=== PATIENT | male | born 1980 | race Hispanic/Latino ===

== ENCOUNTER → 2019-07-23 | Outpatient (CLI) | payer OTHER ==
--- NOTE | 2019-07-28 16:13 | SLEEPCENT ---
DATE OF PROCEDURE: 07/23/2019 ORDERED BY: Shankar Kenny PA-C Nocturnal polysomnography was performed for evaluation of sleep physiology in this patient with a history of excessive somnolence, morning headaches and nonrestorative sleep. 7 hours and 37 minutes of data were reviewed. There were 390.5 minutes of sleep identified. Sleep latency was mildly prolonged at 23 minutes. Rapid eye movement (REM) latency was normal at 80 minutes. Sleep architecture was good. There were four REM cycles. Overall sleep efficiency was 86.1%. The patient's electrocardiogram showed sinus rhythm with an average heart rate of 52 beats per minute. Rate ranged 45-75. EEG showed some coarsening in background, possibly medication effect. No focal events were identified. There were only eight respiratory events identified of 10 seconds in duration or greater for an apnea-hypopnea index of 1.2. The events that were seen were mixed and hypopneic. Events were seen only in the supine posture and arousals from these events were few. There was some limb activity seen but no trains of 30 events or greater. Limb movement arousal index was 5.1, oxygen saturations remained 90% plus throughout the study. IMPRESSION: Normal nocturnal polysomnography with snoring.
== END ==
LOC: M SLEEP 19:05
PROVIDERS: ATTEND Physician Assistant
DX: R06.83 Snoring (principal); R40.0 Somnolence

== ENCOUNTER 2020-07-13 10:10 | Day surgery (SDC) | payer OTHER ==
[~2020-07-13] VITALS: Ht 170.2 cm; Wt 82.1 kg
[~2020-07-13 10:10] MED LIST: LEXA1TAB PO; LIDOCAINE 1% MDV 20ML VIAL SQ PRN; LR 1,000 ML IV ONE; MELA3TAB7 PO; ceFAZolin SOD 2 GM in IV 1 EA IV ONE
[2020-07-13] MEDS ORDERED: KETOROLAC 60MG 2ML VIAL As Ordered ONE (10:22)
[2020-07-13] MEDS ORDERED: SCOPOLAMINE 1MG TRANSDERMAL PATCH As Ordered ONE (10:47)
[2020-07-13] MEDS ORDERED: BUPIVACAINE HCL 0.25% 30ML VIAL As Ordered ONE (10:49)
[2020-07-13] MEDS ORDERED: LIDOCAINE 1% SDV 30ML VIAL As Ordered ONE (10:49)
[2020-07-13] MEDS ORDERED: LIDOCAINE 2% 100MG/5ML SDV (FOR ANES.) As Ordered ONE ×2 (10:50→11:38)
[2020-07-13] MEDS ORDERED: MIDAZOLAM INJ 2MG/2ML VIAL (J2250 PER 1MG) As Ordered ONE (10:50)
[2020-07-13] MEDS ORDERED: propofoL 200 MG/20 ML VIAL As Ordered ONE ×3 (10:50→10:54)
[2020-07-13] MEDS ORDERED: ONDANSETRON 4MG/2ML VIAL As Ordered ONE (10:51)
[2020-07-13] MEDS ORDERED: fentaNYL 100 MCG/2 ML INJECTION (J3010) As Ordered ONE ×2 (10:51→13:32)
[2020-07-13] MEDS ORDERED: dexameTHASONE 4 MG/ML 1ML VIAL (J1100 PER 1MG) As Ordered ONE (10:51)
[2020-07-13] MEDS ORDERED: SCOPOLAMINE 1MG TRANSDERMAL PATCH TOP ONE (11:00)
[2020-07-13] MEDS ORDERED: OXYC1TAB23 PO (11:02)
[2020-07-13] MEDS ORDERED: BACITRACIN OINTMENT 30GM TUBE As Ordered ONE (11:17)
[2020-07-13] MEDS ORDERED: ACETAMINOPHEN 1000MG 100ML IV BTL (OFIRMEV) (J0131 PER 10MG) As Ordered ONE (12:33)
[2020-07-13] MEDS ORDERED: oxyCODONE 5MG TAB As Ordered ONE (13:32)
[2020-07-13] MEDS ORDERED: PERCOCET 5MG/325MG TAB PO PRN (13:45)
[2020-07-13] MEDS ORDERED: oxyCODONE 5MG TAB PO PRN (13:45)
[2020-07-13] MEDS ORDERED: fentaNYL 100 MCG/2 ML INJECTION (J3010) IV PRN (13:45)
[2020-07-13] MEDS ORDERED: METOCLOPRAMIDE INJ 10MG/2ML VIAL (J2765 PER 1) IV PRN (13:45)
[2020-07-13] MEDS ORDERED: MEPERIDINE INJ 25 MG/ML VIAL (J2175) IV PRN (13:45)
[2020-07-13] MEDS ORDERED: ONDANSETRON 4MG/2ML VIAL IV PRN (13:45)
[2020-07-13] MEDS ORDERED: LR 1,000 ML IV SCH (13:45)
--- NOTE | 2020-07-13 14:40 | ROOPDOC ---
[facility] Report Of Operation Report of Operation DATE OF PROCEDURE: 07/13/20 PREPROCEDURE DIAGNOSIS: Balanitis, Sterilization. POSTPROCEDURE DIAGNOSIS: Balanitis, Sterilization. OPERATIVE PROCEDURE: Circumcision, Vasectomy. SURGEON: Shaan Doherty MD SPECIAL EFFECTS DESIGNER: None. ANESTHESIA: General. OPERATIVE INDICATIONS: This is a 39-year-old male with recurrent balanitis and also requesting elective sterilization, here today for a circumcision and a vasectomy. DESCRIPTION OF PROCEDURE: The patient was brought to the operating room and general endotracheal anesthesia was induced. Prophylactic antibiotics were infused. He was then placed in supine position, prepped and draped in the usual sterile fashion. At first, the left vas deferens was approached. After it was localized under the skin, a small incision was made in the upper scrotum. The vas was grasped with the vas clamp and was isolated. The incision was made over the vas capsule to localize the vas. Then the vas was grasped with a vas clamp, cut on either side, and ligated with metal clips on both sides. The ends of the vas were cauterized with electrocautery. After control all small bleeding with the electrocautery the skin was sealed with Dermabond. There was no active bleeding. The same procedure was performed on the right side. Next we moved on to perform the circumcision. Circumcising incisions were made at the level of coronal sulcus with the foreskin completely pulled over the glans, and the also with the foreskin retracted down off of the glans. These circumcising incisions were then connected using electrocautery. All the for eskin between the circumcising incisions were then removed using electrocautery. Once that was done hemostasis was obtained using the coagulation current. Once satisfied with hemostasis, the skin on the penile shaft was reapproximated to the glans using interrupted #3-0 chromic sutures. Dressings were then applied, including Marcus and a Coban dressing, and this marked the conclusion of the procedure. The patient was then awakened from anesthesia and transported to the recovery room in stable condition. ESTIMATED BLOOD LOSS: 15 mL. COMPLICATIONS: None. SPECIMENS: Foreskin, segments of left and right vasa deferentia. PLAN: The patient will followup in clinic in a approximately 2 weeks for a postoperative visit. SHAAN DOHERTY MD Jul 13, 2020 13:40
[2020-07-13 15:45] VITALS: BP 119/67
== END 2020-07-13 15:55 | disposition home or self-care (01) ==
LOC: M SDC 10:10
PROVIDERS: ATTEND Urology
DX: N48.1 Balanitis (principal); Z30.2 Encounter for sterilization; K21.9 Gastro-esophageal reflux disease without esophagitis; Z79.899 Other long term (current) drug therapy
CPT/HCPCS: 54161; 55250; 88302; 88304; J0131; J0690; J1100; J1885; J2250; J2405; J3010

== ENCOUNTER → 2020-10-31 | Outpatient (CLI) | payer OTHER ==
[~2020-10-31] MED LIST changes: -LIDOCAINE 1% MDV 20ML VIAL SQ PRN; -LR 1,000 ML IV ONE; +OXYC1TAB23 PO; -ceFAZolin SOD 2 GM in IV 1 EA IV ONE
--- NOTE | 2020-11-01 08:34 | REP ---
INDICATION: TESTIS PAIN COMPARISON: None. TECHNIQUE: Puente scale and color Doppler evaluation using linear and curved array transducer with color Doppler evaluation. FINDINGS: The testicles and epididymi are relatively normal in contour, size, echogenicity, vascularity and overall appearance. There is no evidence for intratesticular mass lesion, infectious/inflammatory process, or torsion. Small nonspecific bilateral hydroceles noted along with evidence for prior vasectomy. Incidental left epididymal cyst measuring 6.0 x 4.5 x 5.9 mm. Right testicle measures 4.7 x 2.8 x 3.7 cm. Left testicle measures 5.0 x 2.7 x 3.6 cm. IMPRESSION: Essentially normal scrotal ultrasound. Left epididymal cyst measuring 6 mm <Electronically signed by Orlin Javier > 11/01/20 [id number]
== END ==
LOC: M RAD 14:15
PROVIDERS: ATTEND Nurse Practitioner Women's Health
DX: N50.819 Testicular pain, unspecified (principal); N50.3 Cyst of epididymis

== ENCOUNTER → 2021-01-05 | Outpatient (REF) | payer OTHER | LOC: M LAB REF 17:18 | PROVIDERS: ATTEND Orthopaedic Surgery | DX: D36.7 Benign neoplasm of other specified sites (principal) ==